=== PATIENT | female | born 1985 | race Caucasian/White ===

== ENCOUNTER 2017-12-22 16:54 | Emergency (ER) | payer OTHER ==
[2017-12-22 17:21] VITALS: BP 127/84
--- NOTE | 2017-12-22 18:51 | UC ---
Lower Extremity/Ankle HPI - HPI Summary HPI Summary: Cow stepped on foot a month ago. Medial left foot. Last 2 weeks progressively worsening pain lateral left foot. Worse with standing and walking. Also c/o left sided chest wall pain, started under the arm pit now extending down the side of the breast and across with lower chest. Worse with deep breaths. - History of Current Complaint Chief Complaint: UCGeneralIllness Stated Complaint: LEFT SIDE RIB PAIN/LEFT FOOT PAIN Time Seen by Provider: 12/22/17 18:39 Hx Obtained From: Patient Hx Last Menstrual Period: 12/11/17 ?: No Onset/Duration: Sudden Onset, Lasting Weeks - 4, Worse Since - last 2 weeks. Severity Initially: Severe Severity Currently: Moderate Pain Intensity: 5 Aggravating Factor(s): Standing, Ambulation Alleviating Factor(s): Rest Able to Bear Weight: Yes - Allergies/Home Medications Allergies/Adverse Reactions: Allergies Allergy/AdvReac Type Severity Reaction Status Date / Time Sulfa (Sulfonamide Allergy Airway Verified 12/22/17 17:18 Antibiotics) Obstruction Home Medications: Home Medications NK [No Home Medications Reported] 12/22/17 [History Confirmed 12/22/17] PMH/Surg Hx/FS Hx/Imm Hx Previously Healthy: Yes - Surgical History Surgical History: Yes Surgery Procedure, Year, and Place: ESSURE. bilateral carpal tunnel - Family History Known Family History: Positive: Cardiac Disease Negative: Hypertension, Diabetes - Social History Occupation: Employed Full-time Lives: With Family Alcohol Use: Rare Substance Use Type: None Smoking Status (MU): Never Smoked Tobacco Review of Systems All Other Systems Reviewed And Are Negative: Yes Cardiovascular: Positive: Chest Pain Musculoskeletal: Positive: Arthralgia - left foot Physical Exam Triage Information Reviewed: Yes Appearance: Well-Appearing, No Pain Distress, Well-Nourished Vital Signs: Initial Vital Signs Temp 99 F 12/22/17 17:15 Pulse 95 12/22/17 17:15 Resp 15 12/22/17 17:15 BP 127/84 12/22/17 17:15 Pulse Ox 100 12/22/17 17:15 Vital Signs Reviewed: Yes Eyes: Positive: Conjunctiva Clear Neck exam: Normal Respiratory: Positive: Lungs clear. Negative: Chest non-tender - tender along the left latissimus dorsi and anterior chest wall bilaterally below the breasts. Cardiovascular Exam: Normal Musculoskeletal: Positive: Strength Intact - But pain with dorsiflexion and eversion of the left foot Neurological Exam: Normal Psychological Exam: Normal Skin Exam: Normal Lower Extremity Course/Dx - Differential Dx/Diagnosis Differential Diagnosis/HQI/PQRI: Arthritis, Contusion, Fracture (Closed), Sprain , Strain, Tendonitis Provider Diagnoses: Tendonitis left foot. Chest wall muscular pain Discharge - Sign-Out/Discharge Documenting (check all that apply): Patient Departure All imaging exams completed and their final reports reviewed: No - Discharge Plan Condition: Stable Disposition: HOME Patient Education Materials: Tendinitis (ED), Chest Wall Pain (ED) Referrals: Catherine Baires NP [Primary Care Provider] - Additional Instructions: Try massage on the chest wall. If the foot is not getting better try physical therapy. - Billing Disposition and Condition Condition: STABLE Disposition: Home
--- NOTE | 2017-12-23 14:57 | UC ---
- Progress Note Progress Note: XR negative. No change in plan of care Discharge - Sign-Out/Discharge Documenting (check all that apply): Post-Discharge Follow Up All imaging exams completed and their final reports reviewed: Yes - Discharge Plan Condition: Stable Disposition: HOME Patient Education Materials: Tendinitis (ED), Chest Wall Pain (ED) Referrals: Catherine Baires NP [Primary Care Provider] - Additional Instructions: Try massage on the chest wall. If the foot is not getting better try physical therapy. - Billing Disposition and Condition Condition: STABLE Disposition: Home
== END 2017-12-22 19:34 | disposition home or self-care (01) ==
LOC: UCCORT 16:54
DX: M77.52 Other enthesopathy of left foot and ankle (principal); W55.29XA Other contact with cow, initial encounter; Y92.79 Other farm location as the place of occurrence of the external cause; R07.89 Other chest pain; Z88.1 Allergy status to other antibiotic agents
CPT/HCPCS: 99211; G0463